=== PATIENT | male | born 2000 | race African-American/Black ===

== ENCOUNTER 2021-12-14 00:26 | Emergency (ER) | payer MEDICAID ==
[~2021-12-14] VITALS: Ht 188 cm; Wt 80.3 kg
[2021-12-14 00:28] VITALS: BP 126/70
--- NOTE | 2021-12-14 00:34 | NUR ---
TO LOBBY FOLLOWING TRIAGE
--- NOTE | 2021-12-14 03:16 | NUR ---
PT TAKEN TO ULTRASOUND
--- NOTE | 2021-12-14 03:42 | NUR ---
PT RETURN FROM ULTRASOUND
[2021-12-14 04:30] VITALS: BP 126/70
--- NOTE | 2021-12-14 04:30 | NUR ---
Patient discharged with v/s stable. Written and verbal after care instructions given and explained. Patient verbalized understanding. Ambulatory with steady gait. All questions addressed prior to discharge. Advised to follow up with PMD.
== END 2021-12-14 04:30 | disposition home or self-care (01) ==
LOC: MED 00:26
DX: R55 Syncope and collapse (principal); N43.3 Hydrocele, unspecified; R00.1 Bradycardia, unspecified
CPT/HCPCS: 76870; 93005; 99284; Q0092